=== PATIENT | male | born 1955 | race Two or more races ===

== ENCOUNTER 2023-01-18 10:59 | Emergency (ER) | payer OTHER ==
[~2023-01-18] VITALS: Ht 177.8 cm; Wt 78.5 kg
[~2023-01-18 10:59] MED LIST: ASPIR 8181 MG PO; AVAPRO300 MG PO; CARDIZEM CD240 MG PO; GABAPENTIN600 MG PO; GALANTAMINE HBR24 MG PO; GRALISE300 MG PO; HUMALOG100 U/ML SQ; PLETAL PO; PROTONIX40 MG PO; ZANTAC300 MG PO
[2023-01-18] MEDS ORDERED: TRULICITY3 MG/0.5 M SQ (12:30)
[2023-01-18] MEDS ORDERED: LOSARTAN POTAS100 MG PO (12:30)
[2023-01-18] MEDS ORDERED: METOPROLOL TART50 MG PO (12:31)
== END 2023-01-18 16:17 | disposition home or self-care (01) ==
LOC: ER 10:59
DX: S20.213A Contusion of bilateral front wall of thorax, initial encounter (principal); X58.XXXA Exposure to other specified factors, initial encounter; Y93.9 Activity, unspecified; Y92.9 Unspecified place or not applicable; Y99.9 Unspecified external cause status